=== PATIENT | female | born 1985 | race Caucasian/White ===

== ENCOUNTER 2017-07-13 19:45 | Emergency (ER) | payer SELFPAY ==
[2017-07-13] MEDS ORDERED: PROMETHAZINE HCL 25 MG TABLET PO ONE (21:07)
[2017-07-13 21:19] LABS: ABSOLUTE BASOPHILS # (AUTO) 0.1 10^3/uL (0.0-0.2); ABSOLUTE LYMPHOCYTES (AUTO) 2.3 10^3/uL (0.5-4.7); ABSOLUTE MONOCYTES (AUTO) 0.5 10^3/uL (0.1-1.4); BASOPHILS % (AUTO) 0.9 % (0-2); EOSINOPHILS % (AUTO) 0.4 % (0-6); HEMATOCRIT 34.5 % (36.0-47.0); HEMOGLOBIN 11.6 g/dL (12.0-15.5); LYMPHOCYTES % (AUTO) 29.2 % (13-45); MEAN CORPUSCULAR HGB CONC 33.8 g/dL (32.0-36.0); MEAN CORPUSCULAR VOLUME 86 fl (80-97); MONOCYTES % (AUTO) 6.6 % (3-13); PLATELET COUNT 212 10^3/uL (150-450); RED BLOOD COUNT 4.01 10^6/uL (3.72-5.28); RED CELL DISTRIBUTION WIDTH 13.7 % (11.5-14.0); SEGMENTED NEUTROPHILS % (AUTO) 62.9 % (42-78); TOTAL CELLS COUNTED % (AUTO) 100 %; WHITE BLOOD COUNT 7.9 10^3/uL (4.0-10.5)
--- NOTE | 2017-07-13 22:33 | ER Document Report ---
ED General - HPI Patient complains to provider of: Vaginal bleeding <CHINO KAUFMAN - Last Filed: 07/13/17 22:46> <CATHY BHANDARI - Last Filed: 07/14/17 00:31> - General Chief Complaint: Vaginal Bleeding Stated Complaint: VAGINAL BLEEDING Time Seen by Provider: 07/13/17 20:13 - HPI Notes: Patient coming in for vaginal bleeding nausea vomiting. Patient states she did pass a large clot is concerned she may be . Patient states that she is a . 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 Patient states her blood type is B+. Patient also states having vomiting. Patient denies any abdominal trauma states lower abdominal pain. Patient denies fevers chills diarrhea. (CHINO AKUFMAN) - Related Data Allergies/Adverse Reactions: No Known Allergies Allergy (Unverified 07/13/17 19:47) Past Medical History - General Last Menstrual Period: 06/01/2017 - Social History Smoking Status: Unknown if Ever Smoked Patient has suicidal ideation: No Patient has homicidal ideation: No Renal/ Medical History: Denies: Hx Peritoneal Dialysis <CHINO KAUFMAN - Last Filed: 07/13/17 22:46> - Social History Family History: Reviewed & Not Pertinent <CATHY BHANDARI - Last Filed: 07/14/17 00:31> Review of Systems - Review of Systems Constitutional: No symptoms reported EENT: No symptoms reported Cardiovascular: No symptoms reported Respiratory: No symptoms reported Gastrointestinal: Nausea, Vomiting Genitourinary: No symptoms reported Female Genitourinary: Vaginal bleeding Musculoskeletal: No symptoms reported Skin: No symptoms reported Hematologic/Lymphatic: No symptoms reported Neurological/Psychological: No symptoms reported -: Yes All other systems reviewed and negative <CHINO KAUFMAN - Last Filed: 07/13/17 22:46> Physical Exam - Vital signs Interpretation: Normal - General General appearance: Appears well, Alert - HEENT Head: Normocephalic, Atraumatic Eyes: Normal Pupils: PERRL - Respiratory Respiratory status: No respiratory distress Chest status: Nontender Breath sounds: Normal Chest palpation: Normal - Cardiovascular Rhythm: Regular Heart sounds: Normal auscultation Murmur: No - Abdominal Inspection: Normal Distension: No distension Bowel sounds: Normal Tenderness: Nontender Organomegaly: No organomegaly - Back Back: Normal, Nontender - Extremities General upper extremity: Normal inspection, Nontender, Normal color, Normal ROM , Normal temperature General lower extremity: Normal inspection, Nontender, Normal color, Normal ROM , Normal temperature, Normal weight bearing. No: Suzy's sign - Neurological Neuro grossly intact: Yes Cognition: Normal Orientation: AAOx4 Luis Alberto Coma Scale Eye Opening: Spontaneous Luis Alberto Coma Scale Verbal: Oriented Luis Alberto Coma Scale Motor: Obeys Commands [place] Coma Scale Total: 15 Speech: Normal Motor strength normal: LUE, RUE, LLE, RLE Sensory: Normal - Psychological Associated symptoms: Normal affect, Normal mood - Skin Skin Temperature: Warm Skin Moisture: Dry Skin Color: Normal <CHINO KAUFMAN - Last Filed: 07/13/17 22:46> - Vital signs Vitals: Temp Pulse Resp BP Pulse Ox 97.9 F 85 18 110/63 97 07/13/17 20:07 07/13/17 20:07 07/13/17 20:07 07/13/17 20:07 07/13/17 20:07 Course - Laboratory Result Diagrams: 07/13/17 20:58 <CHINO KAUFMAN - Last Filed: 07/13/17 22:46> - Laboratory Result Diagrams: 07/13/17 20:58 <CATHY BHANDARI - Last Filed: 07/14/17 00:31> - Re-evaluation Re-evalutation: 07/13/17 22:47 Patient's quant is elevated. We will send the patient for an ultrasound. Did discuss with the patient possibility of a threatened miscarriage. Currently waiting the ultrasound patient will be signed out to Dr. Bhandari. (CHINO KAUFMAN) 07/14/17 00:30 Ultrasound report came back showing that the patient has a gestational sac without identified pole. There is also a possible second gestational sac. Informed patient at this time is not really clear whether not this is truly impending miscarriage or if the ultrasound is just to really be able see inadequate pole. I informed her that she needs to return in 2 days for repeat of her blood work as well as repeat ultrasound. I informed her that she should return to ER immediately if she has heavy bleeding, intractable vomiting , severe pain, or feels unwell. Patient and her mother agree with plan the patient will be discharged home with the discharge paperwork that was typed up by Dr. Garcia. Dictation of this chart was performed using voice recognition software; therefore, there may be some unintended grammatical errors. 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 Please follow-up for repeat blood testing the next 48-72 hours. Take nausea medication as prescribed take vitamins as prescribed. Prescriptions: Metoclopramide HCl [Reglan] 5 mg PO Q6 #30 tablet Prenat 115/Iron Fum/Folic/Dss [ 19 Tablet] 1 each PO DAILY #30 tablet Forms: Follow-Up Laboratory Testing, Return to Work
--- NOTE | 2017-07-14 00:07 | RADIOLOGY REPORT (SQ) ---
EXAM DESCRIPTION: U/S OB TRANSVAG W/DOPPLER CLINICAL HISTORY: 31 years, Female, preg abd pain bleeding COMPARISON: None. TECHNIQUE: Transvaginal LIMITATIONS: None. FINDINGS: Likely intrauterine gestational sac with yolk sac measuring 6w6d based on mean sac diameter of 1.9-cm. No pole. No cardiac activity. There is an indeterminate second cystic fluid collection within the endometrial cavity which may indicate a second gestational sac of similar age; the second collection does not demonstrate a yolk sac/ pole. No cardiac activity. 9.8 cm uterus, 3.1 cm right ovary, left ovarian fossa, 2.7 cm cervical length appear otherwise unremarkable. Left ovary is not directly visualized. No significant free fluid. IMPRESSION: Intrauterine gestational sac measures 6w6d; no pole/cardiac activity identified at this time. Questionable second intrauterine gestational sac. Differential diagnosis includes early viable or nonviable single/twin gestation.
[2017-07-14 01:17] VITALS: BP 121/75
== END 2017-07-14 01:17 | disposition home or self-care (01) ==
LOC: ER 19:45
DX: O20.0 Threatened abortion (principal); O21.9 Vomiting of pregnancy, unspecified; O26.891 Other specified pregnancy related conditions, first trimester; R10.30 Lower abdominal pain, unspecified; Z3A.01 Less than 8 weeks gestation of pregnancy; Z87.59 Personal history of other complications of pregnancy, childbirth and the puerperium
CPT/HCPCS: 36415; 76817; 84702; 85025; 86900; 86901; 93976; 99284

== ENCOUNTER → 2017-07-16 | Outpatient (CLI) | payer SELFPAY | LOC: LAB 16:26 | PROVIDERS: ATTEND Emergency Medicine | DX: O20.0 Threatened abortion (principal); Z3A.00 Weeks of gestation of pregnancy not specified | CPT/HCPCS: 36415; 84702 ==

== ENCOUNTER 2017-07-29 18:20 | Emergency (ER) | payer MEDICAID ==
[2017-07-29] MEDS ORDERED: ACETAMINOPHEN 325 MG TABLET PO ONE (18:54)
[2017-07-29] MEDS ORDERED: METOCLOPRAMIDE HCL 10 MG TABLET PO ONE (18:55)
--- NOTE | 2017-07-29 18:59 | ER Document Report ---
ED General - General Chief Complaint: Vaginal Bleeding Stated Complaint: VAGINAL BLEEDING Time Seen by Provider: 07/29/17 18:33 Mode of Arrival: Ambulatory Information source: Patient Notes: 31-year-old female 7 para 3 presents with complaints of vaginal bleeding. Patient notes she was seen here couple weeks ago had vaginal bleeding at that time they noted as an early . Patient notes she is having left lower quadrant abdominal pain denies any fevers or chills. pt denies any clots TRAVEL OUTSIDE OF THE [place] IN LAST 30 DAYS: No - HPI Onset: Just prior to arrival Onset/Duration: Sudden Quality of pain: Cramping Severity: Mild Pain Level: 1 Associated symptoms: Nausea, Vomiting, Other Exacerbated by: Denies Relieved by: Denies Similar symptoms previously: Yes Recently seen / treated by doctor: Yes - Related Data Allergies/Adverse Reactions: No Known Allergies Allergy (Verified 07/29/17 18:27) Past Medical History - Social History Smoking Status: Current Some Day Smoker Cigarette use (# per day): Yes Chew tobacco use (# tins/day): No Smoking Education Provided: Yes - Patient counselled regarding cessation for 4 minutes Frequency of alcohol use: None Drug Abuse: None Family History: Reviewed & Not Pertinent Patient has suicidal ideation: No Patient has homicidal ideation: No Renal/ Medical History: Denies: Hx Peritoneal Dialysis Past Surgical History: Reports: Hx Section - x3, Hx Gynecologic Surgery - Ovarian cyst removal, D&C x2, Hx Tonsillectomy Review of Systems - Review of Systems Notes: REVIEW OF SYSTEMS: CONSTITUTIONAL : Denies fever, chills, or sweats. Denies recent illness. EENT: Denies eye, ear, throat, or mouth pain or symptoms. Denies nasal or sinus congestion or discharge. Denies throat, tongue, or mouth swelling or difficulty swallowing. CARDIOVASCULAR: Denies chest pain. Denies palpitations or racing or irregular heart beat. Denies ankle edema. RESPIRATORY: Denies cough, cold, or chest congestion. Denies shortness of breath, difficulty breathing, or wheezing. GASTROINTESTINAL: Admits to nausea vomiting GENITOURINARY: Denies difficulty urinating, painful urination, burning, frequency, blood in urine, or discharge. FEMALE GENITOURINARY: Admits to vaginal spotting MUSCULOSKELETAL: Denies back or neck pain or stiffness. Denies joint pain or swelling. SKIN: Denies rash, lesions or sores. HEMATOLOGIC : Denies easy bruising or bleeding. LYMPHATIC: Denies swollen, enlarged glands. NEUROLOGICAL: Denies confusion or altered mental status. Denies passing out or loss of consciousness. Denies dizziness or lightheadedness. Denies headache. Denies weakness or paralysis or loss of use of either side. Denies problems with gait or speech. Denies sensory loss, numbness, or tingling. Denies seizures. PSYCHIATRIC: Denies anxiety or stress. Denies depression, suicidal ideation, or homicidal ideation. ALL OTHER SYSTEMS REVIEWED AND NEGATIVE. PHYSICAL EXAMINATION: GENERAL: Well-appearing, well-nourished and in no acute distress. HEAD: Atraumatic, normocephalic. EYES: Pupils equal round and reactive to light, extraocular movements intact, conjunctiva are normal. ENT: Nares patent, oropharynx clear without exudates. Moist mucous membranes. NECK: Normal range of motion, supple without lymphadenopathy LUNGS: Breath sounds clear to auscultation bilaterally and equal. No wheezes rales or rhonchi. HEART: Regular rate and rhythm without murmurs ABDOMEN: Soft, nontender, nondistended abdomen. No guarding, no rebound. No masses appreciated. Female : deferred Musculoskeletal: Normal range of motion, no pitting or edema. No cyanosis. NEUROLOGICAL: Cranial nerves grossly intact. Normal speech, normal gait. Normal sensory, motor exams PSYCH: Normal mood, normal affect. SKIN: Warm, Dry, normal turgor, no rashes or lesions noted. Dictation was performed using [employer] voice recognition software Physical Exam - Vital signs Vitals: Temp Pulse Resp BP Pulse Ox 98.4 F 89 16 107/77 99 07/29/17 18:29 07/29/17 18:29 07/29/17 18:29 07/29/17 18:29 07/29/17 18:29 Course - Re-evaluation Re-evalutation: 07/29/17 18:58 Patient's examination is quite benign, she overall looks well is in the distress , I will send her for a transvaginal ultrasound to rule out a miscarriage 07/29/17 19:56 Ultrasound is consistent with 9 week , I discussed with the patient regarding threatened miscarriage, she does not require RhoGam at this time, I will discharge with follow-up with 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 Also, there is no evidence or peritonitis , sepsis, or toxicity. I have reevaluated this patient multiple times and no significant life threatening changes are noted. The patient and I have discussed the diagnosis and risks, and we agree with discharging home with close follow-up with the understanding that symptoms and presentations can change. We also discussed returning to the Emergency Department immediately if new or worsening symptoms occur. We have discussed the symptoms which are most concerning (e.g., bloody stool, fever, changing or worsening pain, vomiting) that necessitate immediate return. - Vital Signs Vital signs: Temp Pulse Resp BP Pulse Ox 98.4 F 89 16 107/77 99 07/29/17 18:29 07/29/17 18:29 07/29/17 18:29 07/29/17 18:29 07/29/17 18:29 - Diagnostic Test Radiology reviewed: Image reviewed - 9 week result provided to patient , Reports reviewed Discharge - Discharge Clinical Impression: Threatened miscarriage in early Condition: Stable Disposition: HOME, SELF-CARE Instructions: Threatened Miscarriage ([facility]) Additional Instructions: Follow up with your physician tomorrow for further care or return to the ED IMMEDIATELY if symptoms worsen or new concerns occur. If you cannot afford to follow up with your primary care physician a list of low cost clinics have been provided at the end of your discharge papers as well.
--- NOTE | 2017-07-29 19:44 | RADIOLOGY REPORT (SQ) ---
EXAM DESCRIPTION: U/S OB TRANSVAGINAL W/O DOP COMPLETED DATE/TIME: 07/29/2017 7:34 pm REASON FOR STUDY: + preg vag bleeding COMPARISON: None. TECHNIQUE: Transvaginal static and realtime grayscale images acquired of the pelvis. Additional meng cted spectral and color Doppler images recorded. All images stored on PACs. bHCG: Not available. LIMITATIONS: None. FINDINGS: FETUS: Living intrauterine . EGA: 9 weeks, 0 days NISHANT: 03/03/2018 FHR: 175 beats per minute. SUBCHORIONIC BLEED: Yes. SIZE OF BLEED: 6 x 7 x 6 mm UTERUS: No masses. No anomalies. CERVICAL LENGTH: 3.6 cm Closed. RIGHT ADNEXA: Normal ovary with normal vascular flow. No adnexal free fluid. No adnexal masses. LEFT ADNEXA: Normal ovary with normal vascular flow. No adnexal free fluid. No adnexal masses. FREE FLUID: None. OTHER: No other significant finding. IMPRESSION: LIVING INTRAUTERINE . EGA 9 weeks, 0 days Trimester of : First - 0 to 13 weeks. TECHNICAL DOCUMENTATION: JOB ID: [id number] [employer]- All Rights Reserved Reading location - IP/workstation name: [email or web address]
[2017-07-29 20:09] VITALS: BP 105/76
== END 2017-07-29 20:08 | disposition home or self-care (01) ==
LOC: ER 18:20
DX: O20.0 Threatened abortion (principal); O21.9 Vomiting of pregnancy, unspecified; O26.891 Other specified pregnancy related conditions, first trimester; R10.32 Left lower quadrant pain; O99.331 Smoking (tobacco) complicating pregnancy, first trimester; F17.210 Nicotine dependence, cigarettes, uncomplicated; Z71.6 Tobacco abuse counseling; Z3A.09 9 weeks gestation of pregnancy
CPT/HCPCS: 76817; 99284; 99406

== ENCOUNTER 2018-02-20 15:22 | Outpatient (CLI) | payer MEDICAID ==
--- NOTE | 2018-02-20 16:27 | Non Stress Test Report ---
Non Stress Test Datetime Report Generated by CPN: 02/20/2018 16:27 DEMOGRAPHIC EGA NST: 38.3 INDICATION Indication for Study: Ordered by Provider MONITORING Monitor Explained: Monitor Explained; Test Explained; Patient Verbalized Understanding Time on Monitor: 02/20/2018 15:34 Time off Monitor: 02/20/2018 16:18 NST Duration: 44 NST INTERVENTIONS NST Interventions: PO Hydration; Reposition Patient Physician Notified NST: PebblesAlicia, CNM BABY A: [id number] BABY A Movement : Present Contraction Frequency : None FHR Baseline : 125 Accelerations : 15X15 Decelerations : None Variability : Moderate 6-25bpm NST Review: Meets Criteria for Reactive NST NST Review and Verified By : Bere Ceballos RNC NST Results: Reactive NST REPORT Report Trigger: Send Report
== END 2018-02-20 16:23 | disposition home or self-care (01) ==
LOC: LC 15:22
PROVIDERS: ATTEND Obstetrics & Gynecology
PROC: 4A1HXCZ Monitoring of Products of Conception, Cardiac Rate, External Approach (ICD-10-PCS; principal; 2018-02-20)
DX: Z34.83 Encounter for supervision of other normal pregnancy, third trimester (principal)
CPT/HCPCS: 59025

== ENCOUNTER 2018-02-28 05:20 | Inpatient (IN) | payer MEDICAID ==
[2018-02-27 11:57] LABS: APPEARANCE,URINE SLIGHTLY-CLOUDY; BILIRUBIN,URINE NEGATIVE (NEGATIVE); COLOR,URINE YELLOW; GLUCOSE, URINE NEGATIVE (NEGATIVE); KETONES,URINE NEGATIVE (NEGATIVE); LEUKOCYTE ESTERASE,URINE TRACE (NEGATIVE); NITRITE,URINE NEGATIVE (NEGATIVE); PROTEIN,URINE NEGATIVE (NEGATIVE); URINE SPECIFIC GRAVITY 1.009; UROBILINOGEN,URINE NEGATIVE mg/dL (<2.0)
[2018-02-27 13:02] LABS: URINE AMPHETAMINES SCREEN NEGATIVE; URINE BARBITURATES SCREEN NEGATIVE; URINE BENZODIAZEPINES SCREEN NEGATIVE; URINE COCAINE SCREEN NEGATIVE; URINE METHADONE SCREEN NEGATIVE; URINE PHENCYCLIDINE SCREEN NEGATIVE
[2018-02-27 13:06] LABS: ABSOLUTE LYMPHOCYTES (AUTO) 1.2 10^3/uL (0.5-4.7); ABSOLUTE MONOCYTES (AUTO) 0.3 10^3/uL (0.1-1.4); ABSOLUTE NEUT (AUTO) 5.3 10^3/uL (1.7-8.2); BASOPHILS % (AUTO) 0.5 % (0-2); EOSINOPHILS % (AUTO) 0.2 % (0-6); HEMATOCRIT 30.3 % (36.0-47.0); HEMOGLOBIN 10.4 g/dL (12.0-15.5); LYMPHOCYTES % (AUTO) 17.9 % (13-45); MEAN CORPUSCULAR HEMOGLOBIN 30.2 pg (27.0-33.4); MEAN CORPUSCULAR HGB CONC 34.3 g/dL (32.0-36.0); MEAN CORPUSCULAR VOLUME 88 fl (80-97); MONOCYTES % (AUTO) 4.1 % (3-13); PLATELET COUNT 180 10^3/uL (150-450); RED BLOOD COUNT 3.43 10^6/uL (3.72-5.28); RED CELL DISTRIBUTION WIDTH 12.8 % (11.5-14.0); SEGMENTED NEUTROPHILS % (AUTO) 77.3 % (42-78); TOTAL CELLS COUNTED % (AUTO) 100 %; WHITE BLOOD COUNT 6.9 10^3/uL (4.0-10.5)
[2018-02-27 14:07] LABS: URINE MARIJUANA (THC) SCREEN UNCONFIRMED POSITIVE
[~2018-02-28 05:20] MED LIST: CEFAZOLIN 2 GM/D5W RTU 2 GM/50 ML RTUPB IV PRN; LACTATED RINGERS 1000 ML IV PRN; LIDOCAINE 0.5% INJ-PF (5 MG/ML) 50 ML SDV SUBCUT PRN; RINGERS SOLUTION,LACTATED 1,000 ML IV PRN
[2018-02-28] MEDS ORDERED: FENTANYL CITRATE INJ/PF 100 MCG/2 ML AMPUL ONE (08:26)
[2018-02-28] MEDS ORDERED: MIDAZOLAM 2 MG/2 ML INJ ONE (08:26)
[2018-02-28] MEDS ORDERED: OXYTOCIN 10 UNIT/ML VIAL ONE (08:26)
[2018-02-28] MEDS ORDERED: ACETAMINOPHEN 1,000 MG/100 ML RTUPB IV ONE (08:27)
[2018-02-28] MEDS ORDERED: OXYTOCIN/NORMAL SALINE 20 UNIT/1,000 ML RTUINJ ONE (08:32)
[2018-02-28] MEDS ORDERED: BUPIVACAINE HCL/DEX-WATER/PF 15 MG/2 ML AMPULE ONE (08:32)
[2018-02-28] MEDS ORDERED: KETOROLAC TROMETHAMINE 60 MG/2 ML SDV ONE (09:03)
[2018-02-28] MEDS ORDERED: ONDANSETRON HCL INJ/PF 4 MG/2 ML SDV ONE (09:03)
[2018-02-28] MEDS ORDERED: METOCLOPRAMIDE HCL INJ/PF 10 MG/2 ML SDV ONE (09:03)
[2018-02-28] MEDS ORDERED: DEXAMETHASONE SOD PHOSPHATE INJ 4 MG/1 ML VIAL ONE (09:03)
[2018-02-28] MEDS ORDERED: PHENYLEPHRINE HCL INJ/PF 10 MG/1 ML SDV ONE (09:03)
[2018-02-28] MEDS ORDERED: MEPERIDINE HCL/PF INJ 25 MG/1 ML DISP.SYRIN IV PRN (09:24)
[2018-02-28] MEDS ORDERED: PROMETHAZINE HCL INJ 25 MG/1 ML VIAL IV PRN ×3 (09:24→10:19)
[2018-02-28] MEDS ORDERED: DIPHENHYDRAMINE HCL 50 MG/ML VIAL IV PRN (09:24)
[2018-02-28] MEDS ORDERED: ONDANSETRON HCL INJ/PF 4 MG/2 ML SDV IV PRN (09:24)
[2018-02-28] MEDS ORDERED: FENTANYL CITRATE INJ/PF 100 MCG/2 ML AMPUL IV PRN ×3 (09:24)
[2018-02-28] MEDS ORDERED: MORPHINE SULFATE 10 MG/ML INJ IV PRN (09:24)
[2018-02-28] MEDS ORDERED: ACETAMINOPHEN 325 MG TABLET PO PRN (10:19)
[2018-02-28] MEDS ORDERED: DEXTROSE 50%-WATER 25 GM/50 ML DISP.SYRIN IV PRN ×2 (10:19)
[2018-02-28] MEDS ORDERED: OXYCODONE-ACETAMINOPHEN 5-325 MG TABLET PO PRN (10:19)
[2018-02-28] MEDS ORDERED: DIPH/PERTUSS(ACELL)/TETANUS VAC/PF 0.5 ML SYR (>=10YO) IM PRN (10:19)
[2018-02-28] MEDS ORDERED: MEASLES,MUMPS&RUBELLA VACC/PF 0.5 ML VIAL SUBCUT PRN (10:19)
[2018-02-28] MEDS ORDERED: EPHEDRINE SULFATE INJ 50 MG/1 ML AMPULE ONE (10:19)
[2018-02-28] MEDS ORDERED: DEXTROSE 40% GEL 15 GM TUBE PO PRN ×2 (10:19)
[2018-02-28] MEDS ORDERED: OXYTOCIN/NORMAL SALINE 20 UNIT/1,000 ML RTUINJ IV PRN (10:19)
[2018-02-28] MEDS ORDERED: SIMETHICONE 80 MG TAB.CHEW PO PRN (10:19)
[2018-02-28] MEDS ORDERED: GLUCAGON,HUMAN RECOMB 1 MG INJ SUBCUT PRN (10:19)
--- NOTE | 2018-02-28 10:24 | PDOC DELIVERY SUMMARY ---
Delivery Summary - Maternal Hx : VIII Hx Para: IV Hx # Term Pregnancies: 3 Hx Total # of Abortions (Sponateous & Elective): 4 Number of Living Children: 3 NISHANT: 03/03/18 Gestational Age: 39+4 Risk Factors: Previous Ruptured Membranes: AROM Fluids: Clear - Delivery Presentation: Vertex Heart Rate Monitoring: Done Pre-Operatively Support Person Present: Yes Location: OR : Scheduled Placenta: Within Normal Limits Delivery of Placenta Date: 02/28/18 Delivery of Placenta Time: 09:19 - Medications Type of Anesthesia:: Spinal - Assess and Care Baby 1 Male Delivery of Infant Date: 02/28/18 Delivery of Infant Time: 09:19 at 1 minute: 9 at 5 minutes: 9 Preprinted Number On Band: [id number] Skin to Skin: No Skin to Skin (Mins): 0 To Nursery At: 09:24 Mode of Transport: Bassinet Infant Delivery Weight: 3,145 Infant Delivery Length: 20.5 in - Delivery Personnel Nursery RN: JUAN TEJADA RN: BRIAS MICHEL MD: MIYA BELL
[2018-02-28] MEDS ORDERED: HYDROMORPHONE HCL INJ/PF 2 MG/ML AMPULE ONE (10:31)
[2018-02-28] MEDS: HYDROMORPHONE HCL INJ/PF 2 MG/ML AMPULE IV PRN ×3 (10:35→17:21)
[2018-02-28] MEDS ORDERED: OXYCODONE-ACETAMINOPHEN 5-325 MG TABLET ONE (11:45)
[2018-02-28] MEDS: OXYCODONE-ACETAMINOPHEN 5-325 MG TABLET PO PRN ×3 (11:47→20:30)
--- NOTE | 2018-02-28 17:10 | Operative Report ---
Operative Report DATE OF SURGERY: 02/28/18 PREOPERATIVE DIAGNOSIS: 1. Intrauterine at 39-4/7 weeks. 2. C- section x3 next. 3. GBS negative. 4. Desires permanent sterilization. 5. Rh positive. 6. Rubella immune POSTOPERATIVE DIAGNOSIS: Same OPERATION: 1. Scheduled repeat section. 2. Permanent sterilization with Filshie clips SURGEON: MIYA DOMINGUEZ ANESTHESIA: Spinal TISSUE REMOVED OR ALTERED: Placenta COMPLICATIONS: None ESTIMATED BLOOD LOSS: 800 mL INTRAOPERATIVE FINDINGS: Male fetus in a cephalic position; Apgars 8 at 1, 9 at 5 PROCEDURE: The patient was brought to the operating room where spinal anesthesia was administered without difficulty. A Hopkins catheter was then placed in the patient's bladder. She was then prepared and draped in the normal sterile fashion in the dorsal supine position with a leftward tilt. A Pfannenstiel skin incision was then made using her previous incision as a guide, with a scalpel and carried through to the underlying layer of fascia. The fascia was then incised in the midline and the incision was extended laterally with the Granger scissors. The superior aspect of the fascial incision was then grasped with the Gualberto clamps, elevated, and underlying rectus muscles were dissected off both bluntly and sharply. Attention was then turned to the inferior aspect of this incision which, in a similar fashion, was grasped, tented up with Gualberto clamps, and the rectus muscles dissected off both bluntly and sharply. The rectus muscles were then in the midline. It was noted that there were 2 holes in the peritoneum, where the omentum could be seen was bulging through. The peritoneum was entered sharply with the Metzenbaum scissors. Peritoneal incision was then extended superiorly and inferiorly with good visualization of the bladder. The bladder blade was then inserted and the vesicouterine peritoneum identified, grasped with pickups and entered sharply with the Metzenbaum scissors. The incision was then extended laterally and the bladder flap created digitally. The bladder blade was then reinserted and the lower uterine segment was incised in transverse fashion with scalpel. The uterine incision was then extended laterally, digitally and with the bandage scissors. The bladder blade was then removed and 's head was delivered atraumatically, with assistance of a vacuum. The nose and mouth were then suctioned with the bulb suction and the cord was clamped and cut. The infant was handed off to the awaiting surface lay out technician. Cord blood was obtained. The placenta was then removed manually, the uterus exteriorized and cleared of all clots and debris. The uterine incision was then repaired with 0 Vicryl in a running, locked fashion. A second layer using 0 chromic was used to imbricate the incision for excellent hemostasis. The bladder flap was then repaired with 3-0 Vicryl in a running fashion. The abdomen was then copiously irrigated with warm normal saline. Attention was then turned to the patient's permanent sterilization. The right fallopian tube was then identified and followed through to the fimbria. A Filshie clip was placed midway, on the fallopian tube. Hemostasis was noted. Same procedure was performed on the left fallopian tube and hemostasis was also noted. The uterus was then returned to the abdomen. A piece of Interceed was placed on the uterine incision as well as a piece vertically on the anterior surface of the uterus. The peritoneum was then closed in a running fashion with 2-0 Vicryl. The fascia was then reapproximated with 0 Vicryl in a running fashion. Subcutaneous fat layer was then closed in an interrupted fashion with 3-0 Vicryl. The skin was then closed in a subcuticular fashion with 4-0 Monocryl. The patient tolerated the procedures well. Sponge, lap, needle and instrument counts were correct x2. The patient was given 2 g of Ancef prior to the start of the procedure. The patient was taken to the recovery room in stable condition
[2018-02-28] MEDS: DOCUSATE SODIUM 100 MG CAPSULE PO SCH (17:21)
[2018-03-01] MEDS: HYDROMORPHONE HCL INJ/PF 2 MG/ML AMPULE IV PRN (00:23)
[2018-03-01] MEDS: CEFAZOLIN 2 GM/D5W RTU 2 GM/50 ML RTUPB IV SCH ×3 (05:18→17:41)
[2018-03-01] MEDS: OXYCODONE-ACETAMINOPHEN 5-325 MG TABLET PO PRN ×4 (05:22→20:50)
[2018-03-01 06:31] LABS: HEMATOCRIT 24.7 % (36.0-47.0); HEMOGLOBIN 8.5 g/dL (12.0-15.5); MEAN CORPUSCULAR HEMOGLOBIN 30.3 pg (27.0-33.4); MEAN CORPUSCULAR HGB CONC 34.5 g/dL (32.0-36.0); MEAN CORPUSCULAR VOLUME 88 fl (80-97); PLATELET COUNT 144 10^3/uL (150-450); RED BLOOD COUNT 2.81 10^6/uL (3.72-5.28); RED CELL DISTRIBUTION WIDTH 12.4 % (11.5-14.0); WHITE BLOOD COUNT 13.7 10^3/uL (4.0-10.5)
[2018-03-01] MEDS: DOCUSATE SODIUM 100 MG CAPSULE PO SCH ×2 (10:46→17:41)
[2018-03-01] MEDS: PRENATAL VITAMIN W DHA CAPSULE PO SCH (10:46)
[2018-03-01] MEDS ORDERED: IRON SUCROSE COMPLEX INJ/PF 100 MG/5 ML SDV IV ONE (11:30)
--- NOTE | 2018-03-01 11:49 | PDOC PROGRESS REPORT ---
Subjective-OB Progress Note for:: 03/01/18 Subjective: 32yo G8 now P3 s/p repeat with tubal ligation ppd1. Pt. ambulating, voiding and passing gas without difficulty. Reports pain well controlled with medication. No concerns at this time. Physical Exam (OB) Vital Signs: Temp Pulse Resp BP Pulse Ox 98.1 F 59 L 16 114/69 93 03/01/18 08:33 03/01/18 08:33 03/01/18 08:33 03/01/18 08:33 03/01/18 08:33 Intake & Output 02/28/18 03/01/18 03/02/18 06:59 06:59 06:59 Intake Total 1622 50 Output Total 1300 Balance 322 50 Weight 73.94 kg - General General Appearance: Appears well In distress: None - PIH/Pre-Eclampsia DTR's: 2 + Clonus: Negative Headache: Absent Epigastric Pain: No Visual Changes: No - Dressing Removed: No Incision: Dressing - dressing placed by dr. Lr and to be removed marky. no additional bleeding noted today Closure Type: Sutures - Bilateral Tubal Ligation Dressing Removed: No - Lochia Lochia Amount: Scant < 10 ml Lochia Color: Rubra/Red - Abdomen Description: Tender, Soft Hernia Present: No Fundal Description: Firm, Midline Fundal Height: u/u - u/2 - Respiratory Respiratory Status: No respiratory distress - Extremities Upper extremity: Normal inspection Lower extremities: Normal inspection - Neurological Cognition: Normal Orientation: AAOx4 - Psychological Associated symptoms: Normal affect, Normal mood Objective-Diagnostic Laboratory: 03/01/18 06:18 03/01/18 06:18 WBC 13.7 H RBC 2.81 L Hgb 8.5 L Hct 24.7 L MCV 88 MCH 30.3 MCHC 34.5 RDW 12.4 Plt Count 144 L Assessment and Plan(PN) - Assessment and Plan (1) Status post repeat low transverse section Is this a current diagnosis for this admission?: Yes Plan: Routine pp care. (2) Status post tubal ligation at time of delivery, current hospitalization Is this a current diagnosis for this admission?: Yes Plan: Routine pp care. (3) Anemia affecting in third trimester Is this a current diagnosis for this admission?: Yes Plan: Increase dietary iron and FeSO4 BID. (4) Drug use affecting Qualifiers: Trimester: unspecified trimester Qualified Code(s): O99.320 - Drug use complicating , unspecified trimester Is this a current diagnosis for this admission?: Yes Plan: discharge planning consult placed - Time Spent with Patient Time with patient: Less than 15 minutes Smoking Education Provided: Over 3 minutes Medications reviewed and adjusted accordingly: Yes - Disposition Anticipated Discharge: Home Within: within 24 hours
[2018-03-02] MEDS: OXYCODONE-ACETAMINOPHEN 5-325 MG TABLET PO PRN ×3 (01:07→12:10)
[2018-03-02 08:27] VITALS: BP 120/76
--- NOTE | 2018-03-02 09:37 | PDOC DISCHARGE SUMMARY ---
Final Diagnosis Discharge Date: 03/02/18 - Final Diagnosis (1) Anemia affecting in third trimester Is this a current diagnosis for this admission?: Yes (2) Drug use affecting Is this a current diagnosis for this admission?: Yes (3) Status post repeat low transverse section Is this a current diagnosis for this admission?: Yes (4) Status post tubal ligation at time of delivery, current hospitalization Is this a current diagnosis for this admission?: Yes Discharge Data - Discharge Medication Home Medications: Prenat 115/Iron Fum/Folic/Dss [ 19 Tablet] 1 each PO DAILY #30 tablet Reason(s) for Admission: Ceasarean Section-Repeat, Tubal Ligation Intrapartum Procedure(s): : Low Cervical, Transverse - Diagnosis Test Laboratory: Temp Pulse Resp BP Pulse Ox 98.0 F 74 18 120/76 99 03/02/18 07:49 03/02/18 07:49 03/02/18 07:49 03/02/18 07:49 03/02/18 07:49 02/27/18 02/27/18 03/01/18 10:40 11:25 06:18 RBC 3.43 L 2.81 L Hgb 10.4 L 8.5 L Hct 30.3 L 24.7 L Urine Opiates Screen NEGATIVE - Discharge information/Instructions Discharge Activity: Balance Activity w/Rest, No Lifting Over 10 Pounds, No Lifting/Push/Pulling, Pelvic Rest, No tub bath Discharge Diet: Regular Disposition: HOME, SELF-CARE Follow [facility] with: [facility] in: 5, Days
[2018-03-02] MEDS: DOCUSATE SODIUM 100 MG CAPSULE PO SCH (10:02)
[2018-03-02] MEDS: PRENATAL VITAMIN W DHA CAPSULE PO SCH (10:03)
== END 2018-03-02 12:45 | disposition home or self-care (01) | DRG 784 ==
LOC: 2S 05:20
PROVIDERS: ADMIT Obstetrics & Gynecology; ATTEND Obstetrics & Gynecology
PROC: 0UL70CZ Occlusion of Bilateral Fallopian Tubes with Extraluminal Device, Open Approach (ICD-10-PCS; 2018-02-28)
PROC: 4A1HXCZ Monitoring of Products of Conception, Cardiac Rate, External Approach (ICD-10-PCS; 2018-02-28)
PROC: 10D00Z1 Extraction of Products of Conception, Low, Open Approach (ICD-10-PCS; principal; 2018-02-28 08:30)
DX: O34.211 Maternal care for low transverse scar from previous cesarean delivery (principal); O99.324 Drug use complicating childbirth; Z30.2 Encounter for sterilization; F12.90 Cannabis use, unspecified, uncomplicated; O99.02 Anemia complicating childbirth; D64.9 Anemia, unspecified; F17.210 Nicotine dependence, cigarettes, uncomplicated; O24.420 Gestational diabetes mellitus in childbirth, diet controlled; O99.334 Smoking (tobacco) complicating childbirth; Z83.3 Family history of diabetes mellitus; Z37.0 Single live birth
CPT/HCPCS: 1961; 36415; 59025; 80307; 81001; 82962; 85025; 85027; 86850; 86900; 86901; 94799; J0131; J0690; J1100; J1170; J1756; J1885; J2250; J2370; J2405; J2590; J2765; J3010; J3490; J7120

== ENCOUNTER 2018-06-20 22:35 | Emergency (ER) | payer MEDICAID ==
[2018-06-20 22:55] VITALS: BP 110/73
== END 2018-06-21 00:39 | disposition left against medical advice (07) ==
LOC: ER 22:35
DX: Z53.21 Procedure and treatment not carried out due to patient leaving prior to being seen by health care provider (principal)

== ENCOUNTER 2018-07-07 17:05 | Emergency (ER) | payer MEDICAID ==
[2018-07-07] MEDS ORDERED: CLINDAMYCIN HCL 150 MG CAPSULE PO ONE (18:13)
[2018-07-07] MEDS ORDERED: HYDROCODONE/ACETAMINOPHEN 5-325 MG TABLET PO ONE (18:13)
[2018-07-07] MEDS ORDERED: IBUPROFEN 800 MG TABLET PO ONE (18:13)
[2018-07-07] MEDS ORDERED: LIDOCAINE 2% VISCOUS SOLN 20 ML UDCUP PO ONE (18:14)
--- NOTE | 2018-07-07 18:15 | ER Document Report ---
HPI - HPI Patient complains to provider of: Dental infection Time Seen by Provider: 07/07/18 18:00 Onset/Duration: Persistent, Worse Quality of pain: Achy Pain Level: 5 Context: Patient complains of lower jaw swelling for the past 2 days. Patient denies any fever. Patient does have several decayed teeth. Patient has an appointment with a dentist later this month. Associated Symptoms: denies: Fever Exacerbated by: Denies Relieved by: Denies Similar symptoms previously: Yes Recently seen / treated by doctor: No - ROS ROS below otherwise negative: Yes Systems Reviewed and Negative: Yes All other systems reviewed and negative - CONSTITUTIONAL Constitutional: DENIES: Fever, Chills - EENT EENT: DENIES: Ear Pain, Congestion Notes: Dental pain, gingival swelling - GASTROINTESTINAL Gastrointestinal: DENIES: Nausea, Patient vomiting - REPRODUCTIVE Reproductive: DENIES: : - DERM Skin Color: Normal Skin Problems: None Past Medical History - General Information source: Patient - Social History Smoking Status: Current Every Day Smoker Smoking Education Provided: Yes Frequency of alcohol use: None Drug Abuse: None Occupation: none Lives with: Family Family History: Reviewed & Not Pertinent - Medical History Medical History: Negative Renal/ Medical History: Denies: Hx Peritoneal Dialysis Past Surgical History: Reports: Hx Section - x3, Hx Gynecologic Surgery - Ovarian cyst removal, D&C x2, Hx Tonsillectomy Vertical Provider Document - CONSTITUTIONAL Agree With Documented VS: Yes Exam Limitations: No Limitations General Appearance: WD/WN, No Apparent Distress - INFECTION CONTROL TRAVEL OUTSIDE OF THE [place] IN LAST 30 DAYS: No - HEENT HEENT: Atraumatic, Normocephalic. negative: Pharyngeal Exudate, Pharyngeal Tenderness, Pharyngeal Erythema, Tympanic Membrane Red, Tympanic Membrane Bulg ing Mouth Diagram: 1 - Dental abscess, area soft and fluctuant, no sublingual or submental swelling - NECK Neck: Lymphadenopathy-Left - RESPIRATORY Respiratory: Breath Sounds Normal, No Respiratory Distress - CARDIOVASCULAR Cardiovascular: Regular Rate, Regular Rhythm - MUSCULOSKELETAL/EXTREMETIES Musculoskeletal/Extremeties: LADY [place]HERTY - NEURO Level of Consciousness: Awake, Alert, Appropriate Motor/Sensory: No Motor Deficit - DERM Integumentary: Warm, Dry, No Rash Course - Vital Signs Vital signs: Temp Pulse Resp BP Pulse Ox 98.2 F 81 16 116/73 99 07/07/18 17:15 07/07/18 17:15 07/07/18 17:15 07/07/18 17:15 07/07/18 17:15 Procedures - Incision and Drainage Face Type: Simple Incision Method: Incision made with needle Amount/type of drainage: Moderate amount of purulent drainage after incision Mouth/Teeth picture: 1 - abscess Discharge - Discharge Clinical Impression: Dental abscess, Encounter for incision and drainage procedure Condition: Stable Disposition: HOME, SELF-CARE Instructions: Clindamycin ([facility]), Dentist, Dental Infection or Abscess ([facility]), Post Incision and Drainage Additional Instructions: Return immediately for any new or worsening symptoms Followup with your primary care provider, call tomorrow to make a followup appointment Prescriptions: Clindamycin HCl [Cleocin 300 mg Capsule] 300 mg PO TID #21 capsule Naproxen [Naprosyn 250 Nmg Tablet] 1 tab PO BID #14 tablet Tramadol HCl [Ultram 50 mg Tablet] 50 mg PO ASDIR PRN #10 tablet PRN Reason: Forms: Smoking Cessation Education Referrals: [facility] [Provider Group] - Follow up as needed
[2018-07-07 19:27] VITALS: BP 116/72
== END 2018-07-07 19:27 | disposition home or self-care (01) ==
LOC: ER 17:05
DX: K04.7 Periapical abscess without sinus (principal); R59.0 Localized enlarged lymph nodes; F17.200 Nicotine dependence, unspecified, uncomplicated
CPT/HCPCS: 99283; 41800; J3490 ×3

== ENCOUNTER 2018-08-12 16:48 | Emergency (ER) | payer MEDICAID ==
[2018-08-12] MEDS ORDERED: DIPHENHYDRAMINE HCL 50 MG CAPSULE PO ONE (17:32)
--- NOTE | 2018-08-12 17:32 | ER Document Report ---
HPI - HPI Time Seen by Provider: 08/12/18 17:24 Pain Level: Denies Context: Patient is a 32-year-old female who presents emergency department with a chief complaint of a rash. She states that her rash started 8-9 days ago. She states that she was doing yard work during that time and might been exposed to poison megan. She states that she has been using poison megan spray, calamine lotion and Tylenol to help with her symptoms, but has not taken any Benadryl. She denies any difficulty breathing, shortness of breath, swelling, nausea, vomiting, or diarrhea. - CONSTITUTIONAL Constitutional: DENIES: Fever, Chills - EENT EENT: DENIES: Sore Throat - NEURO Neurology: DENIES: Headache - CARDIOVASCULAR Cardiovascular: DENIES: Chest pain - RESPIRATORY Respiratory: DENIES: Coughing - GASTROINTESTINAL Gastrointestinal: DENIES: Abdominal Pain - REPRODUCTIVE Reproductive: DENIES: : - MUSCULOSKELETAL Musculoskeletal: DENIES: Extremity pain - DERM Skin Color: Normal Skin Problems: Rash - Itchy Past Medical History - Social History Smoking Status: Current Every Day Smoker Family History: Reviewed & Not Pertinent Renal/ Medical History: Denies: Hx Peritoneal Dialysis Past Surgical History: Reports: Hx Section - x3, Hx Gynecologic Surgery - Ovarian cyst removal, D&C x2, Hx Tonsillectomy Vertical Provider Document - CONSTITUTIONAL Agree With Documented VS: Yes Exam Limitations: No Limitations General Appearance: No Apparent Distress - INFECTION CONTROL TRAVEL OUTSIDE OF THE [place] IN LAST 30 DAYS: No - HEENT HEENT: Atraumatic, Normocephalic - NECK Neck: Normal Inspection - RESPIRATORY Respiratory: Breath Sounds Normal, No Respiratory Distress - CARDIOVASCULAR Cardiovascular: Regular Rate Course - Re-evaluation Re-evalutation: 08/12/18 17:32 Patient's rash is consistent with a poison megan rash. She will be given a dose of Benadryl here in the emergency department and she will be sent home with a steroid taper. She will also take Benadryl and Pepcid at home for her pruritus. I do not suspect the patient has mumps, measles, rubella, or any life- threatening etiology at this time. Verbal discharge instructions were given to the patient. They verbalized understanding. They are stable for discharge. - Vital Signs Vital signs: Temp Pulse Resp BP Pulse Ox 97.8 F 95 16 113/83 97 08/12/18 16:54 08/12/18 16:54 08/12/18 16:54 08/12/18 16:54 08/12/18 16:54 Discharge - Discharge Clinical Impression: Rash Condition: Stable Disposition: HOME, SELF-CARE Additional Instructions: Your being seen today for poison megan. Please take the steroid taper as directed. Return for any difficulty breathing, vomiting, passing out, or any other symptoms that are worrisome to you. Take Benadryl 25-50 mg every 6 hours as needed for itching. Take Pepcid 20 mg twice a day for the next 5 days. Prescriptions: Famotidine [Pepcid 20 mg Tablet] 20 mg PO BID #10 tablet Prednisone [Deltasone 20 mg Tablet] 20 tab PO ASDIR 5 Days tablet
[2018-08-12] MEDS ORDERED: FAMOTIDINE 20 MG TABLET PO ONE (17:33)
[2018-08-12 18:13] VITALS: BP 114/76
== END 2018-08-12 18:05 | disposition home or self-care (01) ==
LOC: ER 16:48
DX: R21 Rash and other nonspecific skin eruption (principal); L29.9 Pruritus, unspecified; F17.200 Nicotine dependence, unspecified, uncomplicated
CPT/HCPCS: 99282; J3490 ×2

== ENCOUNTER 2019-05-18 21:53 | Emergency (ER) | payer MEDICAID ==
[2019-05-18] MEDS ORDERED: ONDANSETRON 4 MG TAB.RAPDIS PO ONE (22:22)
--- NOTE | 2019-05-18 22:26 | ER Document Report ---
ED Medical Screen (RME) - General Chief Complaint: Groin Pain Stated Complaint: ABDOMINAL PAIN Time Seen by Provider: 05/18/19 22:22 Mode of Arrival: Wheelchair Information source: Patient Notes: HPI: 33-year-old female presenting to the emergency department complaining of sudden onset right pelvic pain that is sharp in nature worse with movement. Reports nausea vomiting with this. Prior history of ovarian cysts feels similar. No pain into the flank. No recent fever or dysuria. I have greeted and performed a rapid initial assessment of this patient. A comprehensive ED assessment and evaluation of the patient, analysis of test results and completion of the medical decision making process will be conducted by additional ED providers PHYSICAL EXAMINATION: GENERAL: Well-appearing, well-nourished and in moderate acute distress. HEAD: Atraumatic, normocephalic. EYES: sclera anicteric, conjunctiva are normal. ENT: Moist mucous membranes. NECK: Normal range of motion LUNGS: Normal work of breathing HEART: 2+ radial pulses bilaterally ABD: limited by positioning for exam in triage, but moderate tenderness in the right pelvis on palpation EXTREMITIES: no pitting or edema. No cyanosis. NEUROLOGICAL: Moves all extremities spontaneously and on command. PSYCH: Normal mood, normal affect. SKIN: Warm, Dry, normal turgor, no rashes or lesions noted. TRAVEL OUTSIDE OF THE [place] IN LAST 30 DAYS: No - Related Data Allergies/Adverse Reactions: No Known Allergies Allergy (Verified 07/29/17 18:27) Past Medical History Renal/ Medical History: Denies: Hx Peritoneal Dialysis Past Surgical History: Reports: Hx Section - x3, Hx Gynecologic Surgery - Ovarian cyst removal, D&C x2, Hx Tonsillectomy Physical Exam - Vital signs Vitals: Temp Pulse Resp BP Pulse Ox 97.7 F 62 16 125/91 H 99 05/18/19 22:06 05/18/19 22:06 05/18/19 22:06 05/18/19 22:06 05/18/19 22:06 Course - Vital Signs Vital signs: Temp Pulse Resp BP Pulse Ox 97.7 F 62 16 125/91 H 99 05/18/19 22:06 05/18/19 22:06 05/18/19 22:06 05/18/19 22:06 05/18/19 22:06
[2019-05-18 22:55] LABS: ABSOLUTE LYMPHOCYTES (AUTO) 1.8 10^3/uL (0.5-4.7); ABSOLUTE MONOCYTES (AUTO) 0.3 10^3/uL (0.1-1.4); ABSOLUTE NEUT (AUTO) 2.9 10^3/uL (1.7-8.2); BASOPHILS % (AUTO) 0.4 % (0-2); EOSINOPHILS % (AUTO) 0.5 % (0-6); HEMATOCRIT 37.1 % (36.0-47.0); HEMOGLOBIN 12.5 g/dL (12.0-15.5); LYMPHOCYTES % (AUTO) 35.8 % (13-45); MEAN CORPUSCULAR HEMOGLOBIN 29.5 pg (27.0-33.4); MEAN CORPUSCULAR HGB CONC 33.8 g/dL (32.0-36.0); MEAN CORPUSCULAR VOLUME 87 fl (80-97); MONOCYTES % (AUTO) 6.3 % (3-13); PLATELET COUNT 107 10^3/uL (150-450); RED BLOOD COUNT 4.25 10^6/uL (3.72-5.28); RED CELL DISTRIBUTION WIDTH 12.9 % (11.5-14.0); TOTAL CELLS COUNTED % (AUTO) 100 %; WHITE BLOOD COUNT 5.1 10^3/uL (4.0-10.5)
[2019-05-18 22:57] LABS: APPEARANCE,URINE SLIGHTLY-CLOUDY; BILIRUBIN,URINE NEGATIVE (NEGATIVE); COLOR,URINE YELLOW; GLUCOSE, URINE NEGATIVE (NEGATIVE); KETONES,URINE NEGATIVE (NEGATIVE); LEUKOCYTE ESTERASE,URINE NEGATIVE (NEGATIVE); NITRITE,URINE NEGATIVE (NEGATIVE); PROTEIN,URINE 30 mg/dL (NEGATIVE); URINE SPECIFIC GRAVITY 1.025
[2019-05-18 23:03] LABS: ALKALINE PHOSPHATASE 50 U/L (38-126); ANION GAP 7 (5-19); ASPARTATE AMINO TRANSFERASE 29 U/L (14-36); BLOOD UREA NITROGEN 16 mg/dL (7-20); CALCIUM 9.6 mg/dL (8.4-10.2); CARBON DIOXIDE 30 mmol/L (22-30); CHLORIDE 105 mmol/L (98-107); GLUCOSE 96 mg/dL (75-110); POTASSIUM 3.7 mmol/L (3.6-5.0); TOTAL PROTEIN 6.9 g/dL (6.3-8.2)
--- NOTE | 2019-05-18 23:35 | RADIOLOGY REPORT (SQ) ---
US PELVIS EXAM DATE: 05/18/2019 10:23 PM DAYCARE DIRECTOR HISTORY: Right-sided pelvic pain. COMPARISON: None. TECHNIQUE: Grayscale, color Doppler, and spectral Doppler ultrasound images of the pelvis were obtained. FINDINGS: The uterus is anteverted and measures 8.4 x 3.8 x 4.9 cm. The endometrium is 4 mm in thickness. The cervix is 3 cm in length. Both ovaries are normal in size and contain normal follicles, with the right ovary measuring 3.4 x 1.9 x 2.0 cm, and the left ovary measuring 2.7 x 1.6 x 2.1 cm. Normal color Doppler blood flow is seen in both ovaries. No pelvic free fluid. IMPRESSION: Normal pelvic ultrasound.
[2019-05-18 23:50] LABS: BILIRUBIN,TOTAL < 0.1 mg/dL (0.2-1.3)
[2019-05-19] MEDS ORDERED: KETOROLAC TROMETHAMINE INJ/PF 30 MG/1 ML SDV IV ONE (00:07)
[2019-05-19] MEDS ORDERED: FENTANYL CITRATE INJ/PF 100 MCG/2 ML AMPUL IV ONE (00:08)
[2019-05-19] MEDS ORDERED: NORMAL SALINE 1000 ML 1,000 ML IV ONE (00:09)
--- NOTE | 2019-05-19 00:20 | ER Document Report ---
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 Patient had some nausea with some vomiting and was given Zofran by nursing staff prior to me seeing her. Patient reports she is never had any kidney stones in the past but her mother has had kidney stones in the past. Patient denies any trauma fever chills cough cold CVA pain. Pain is worse on movement. She denies any dysuria she denies any skin rashes spider bite animal bites insect bite human bite patient denies any TRAVEL OUTSIDE OF THE [place] IN LAST 30 DAYS: No - HPI Onset: This evening Onset/Duration: Sudden, Worse Severity: Severe Pain Level: 5 Associated symptoms: Body/muscle aches Exacerbated by: Movement Relieved by: Denies Similar symptoms previously: No Recently seen / treated by doctor: No - Related Data Allergies/Adverse Reactions: No Known Allergies Allergy (Verified 07/29/17 18:27) Past Medical History - General Information source: Patient - Social History Smoking Status: Current Every Day Smoker Cigarette use (# per day): Yes Chew tobacco use (# tins/day): No Smoking Education Provided: Yes Frequency of alcohol use: Occasional Lives with: Family Family History: Reviewed & Not Pertinent Patient has suicidal ideation: No Patient has homicidal ideation: No Renal/ Medical History: Denies: Hx Peritoneal Dialysis Past Surgical History: Reports: Hx Section - x3, Hx Gynecologic Surgery - Ovarian cyst removal, D&C x2, Hx Tonsillectomy Review of Systems - Review of Systems Constitutional: No symptoms reported EENT: No symptoms reported Cardiovascular: No symptoms reported Gastrointestinal: Abdominal pain, Nausea, Vomiting Genitourinary: No symptoms reported Female Genitourinary: No symptoms reported Musculoskeletal: No symptoms reported Skin: No symptoms reported Hematologic/Lymphatic: No symptoms reported Neurological/Psychological: No symptoms reported Physical Exam - Vital signs Vitals: Temp Pulse Resp BP Pulse Ox 97.7 F 62 16 125/91 H 99 05/18/19 22:06 05/18/19 22:06 05/18/19 22:06 05/18/19 22:06 05/18/19 22:06 Interpretation: Normal - General General appearance: Anxious In distress: Mild - HEENT Head: Normocephalic Eyes: Normal Conjunctiva: Normal Cornea: Normal Extraocular movements intact: Yes Eyelashes: Normal Pupils: PERRL Sinus: Normal Nasal: Normal Pharynx: Normal Neck: Normal - Respiratory Respiratory status: No respiratory distress Chest status: Nontender Breath sounds: Normal Chest palpation: Normal - Abdominal Inspection: Normal Distension: No distension Bowel sounds: Normal Tenderness: Tender, Other - RLQ - Back Back: Normal - Extremities General upper extremity: Normal inspection General lower extremity: Normal inspection Course - Vital Signs Vital signs: Temp Pulse Resp BP Pulse Ox 97.7 F 62 16 125/91 H 99 05/18/19 22:06 05/18/19 22:06 05/18/19 22:06 05/18/19 22:06 05/18/19 22:06 - Laboratory Result Diagrams: 05/18/19 22:30 05/18/19 22:30 Laboratory results interpreted by me: 05/18/19 05/18/19 05/18/19 22:30 22:30 22:30 Plt Count 107 L D-Dimer Total Bilirubin < 0.1 L Urine Protein 30 H Urine Blood LARGE H Urine Urobilinogen 2.0 H 05/18/19 22:30 Plt Count D-Dimer 0.54 H Total Bilirubin Urine Protein Urine Blood Urine Urobilinogen - Diagnostic Test Radiology reviewed: Reports reviewed Critical Care Note - Critical Care Note Total time excluding time spent on procedures (mins): 90 Comments: Patient with CT findings per radiology were discussed with patient. I advised p atient to follow-up with personal doctor today or tomorrow in their office and take medicines as directed encourage fluids Discharge - Discharge Clinical Impression: Abdominal pain, Kidney stone Condition: Good Disposition: HOME, SELF-CARE Additional Instructions: Follow-up with personal doctor this week return to ER as needed take medicines as directed encourage fluids Prescriptions: Ciprofloxacin HCl [Cipro 500 mg Tablet] 500 mg PO BID #20 tablet Chlorzoxazone [Parafon Forte Dsc 500 Mg Tablet] 500 mg PO BID PRN 10 Days #20 tablet PRN Reason: Forms: Return to Work
--- NOTE | 2019-05-19 02:39 | RADIOLOGY REPORT (SQ) ---
EXAM DESCRIPTION: CT ABDOMEN PELVIS WITHOUT IV CONTRAST COMPLETED DATE/TME: 05/19/2019 00:04 CLINICAL HISTORY: 33 years Female, right low quad abd pain. hcg neg Comparison: US, pelvis, 05/18/19 Technique: No contrast. Coronal and sagittal reformat. This exam was performed according to our departmental dose-optimization program, which includes automated exposure control, adjustment of the mA and/or kV according to patient size and/or use of iterative reconstruction technique.[facility]: Dose Right [facility]: CareDose [facility]: Dose Right [facility]: Teradose 4D [facility]: SMARTECH MFG LIMITATIONS: None Findings: 0.3 cm left nephrolithiasis. No hydronephrosis-hydroureter. Decompressed gallbladder. Small pericholecystic fluid. Possible tubal ligation clips. No ascites. No pneumoperitoneum. No evidence of appendicitis. Likely normal appendix partially discerned. No bowel obstruction. No evidence of abdominal aortic aneurysm. No gross evidence of thecal sac/cord or nerve root compression. Unenhanced lower thorax, abdominopelvic structures, and musculoskeleton appear otherwise grossly unremarkable. Impression: 1. Decompressed gallbladder. Small pericholecystic fluid, nonspecific. 2. 0.3 cm left nephrolithiasis. No hydronephrosis-hydroureter.
[2019-05-19 03:52] VITALS: BP 103/60
== END 2019-05-19 03:52 | disposition home or self-care (01) ==
LOC: ER 21:53
DX: N20.0 Calculus of kidney (principal); R10.30 Lower abdominal pain, unspecified; R11.2 Nausea with vomiting, unspecified; R10.9 Unspecified abdominal pain; M79.10 Myalgia, unspecified site; F17.210 Nicotine dependence, cigarettes, uncomplicated
CPT/HCPCS: 99285; 96361; 96374; 96375; 36415; 84703; 85025; 80053; 81001; 85379; 76830; 93976; 74176; S0119; J3010; J1885; J7030